=== PATIENT | female | born 1945 | race Hispanic/Latino ===

== ENCOUNTER 2018-11-18 09:12 | Day surgery (SDC) | payer OTHER ==
--- OUTSIDE RECORDS SUMMARY | 2018-11-18 09:16 | XMS REPORT ---
:1945 Author Organization eClinicalWorks Care Team Providers Name Role Phone Chaparro To Provider Role Unavailable Allergies No Known Allergies Problems Problem Type Condition Code Onset Dates Condition Status Problem Anemia D64.9 Active Problem Benign essential HTN I10 Active Problem Vitamin D deficiency E55.9 Active Problem Decreased vision of right eye H54.7 Active Problem History of fall Z91.81 Active Problem Adult BMI 32.0-32.9 kg/sq m Z68.32 Active Problem Diverticulosis of colon without K57.30 Active diverticulitis Problem Hyperlipidemia E78.5 Active Problem Tobacco use disorder F17.200 Active Problem External hemorrhoids K64.4 Active Problem CKD (chronic kidney disease) stage N18.4 Active 4, GFR 15-29 ml/min Problem Proteinuria, unspecified type R80.9 Active Problem Nephritic syndrome N05.9 Active Problem Diabetes type 2, controlled E11.9 Active Problem Pelvic fracture S32.9XXA Active Problem Constipation K59.00 Active Problem Vitamin B 12 deficiency E53.8 Active Problem Insomnia G47.00 Active Medications No Known Medications Results No Known Results Summary Purpose eClinicalWorks Submission
--- OUTSIDE RECORDS SUMMARY | 2018-11-18 09:16 | XMS REPORT ---
:1945 Author Organization [employer]Works Care Team Providers Name Role Phone MayfieldTo Provider Role Unavailable Allergies, Adverse Reactions, Alerts Substance Reaction Event Type N.K.D.A. Info Not Available Non Drug Allergy Problems Problem Type Condition Code Onset Dates Condition Status Assessment Adult BMI 32.0-32.9 kg/sq m Z68.32 Active Assessment Proteinuria, unspecified type R80.9 Active Assessment Insomnia G47.00 Active Problem Constipation K59.00 Active Assessment Anemia D64.9 Active Problem Insomnia G47.00 Active Assessment CKD (chronic kidney disease) stage N18.4 Active 4, GFR 15-29 ml/min Problem Anemia D64.9 Active Problem Benign essential HTN I10 Active Problem Vitamin D deficiency E55.9 Active Problem Decreased vision of right eye H54.7 Active Problem History of fall Z91.81 Active Assessment Diabetes type 2, controlled E11.9 Active Assessment Hyperlipidemia E78.5 Active Problem Adult BMI 32.0-32.9 kg/sq m Z68.32 Active Assessment History of fall Z91.81 Active Problem Diverticulosis of colon without K57.30 Active diverticulitis Problem Hyperlipidemia E78.5 Active Problem Tobacco use disorder F17.200 Active Problem External hemorrhoids K64.4 Active Problem CKD (chronic kidney disease) stage N18.4 Active 4, GFR 15-29 ml/min Problem Proteinuria, unspecified type R80.9 Active Assessment Benign essential HTN I10 Active Problem Nephritic syndrome N05.9 Active Problem Diabetes type 2, controlled E11.9 Active Problem Pelvic fracture S32.9XXA Active Problem Vitamin B 12 deficiency E53.8 Active Medications Medication Code Code Instructions Start End Status Dosage System Date Date Atorvastatin [facility] 20492220573 80 MG Orally Active 1 tablet Calcium Once a day Amitriptyline [facility] 06578975054 10 MG Active TAKE ONE HCl TABLET BY MOUTH EVERY DAY AT BEDTIME Carvedilol ND 60183614965 12.5 MG Active TAKE ONE TABLET BY MOUTH 2 TIMES DAILY Omeprazole [facility] 68130128947 20 MG Active TAKE ONE CAPSULE BY MOUTHDAILY Glimepiride [facility] 50853666915 4 MG Active TAKE ONE TABLET BY MOUTH ONCE DAILY Os-Kory Ultra [facility] 12745068825 600 MG Orally Active 1 tablet Twice a day with meals Carvedilol [facility] 43390099214 12.5 MG Orally Active 1 tab BID Amlodipine [facility] 10776657906 10 MG Active TAKE 1 Besylate TABLET BY MOUTH DAILY Tresiba [facility] 58720705180 200 UNIT/ML Active inject 35 FlexTouch Subcutaneous units Once a day Lipitor [facility] 32541768507 80 MG Orally Active 1 tablet Once a day Amitriptyline [facility] 27795749501 10 MG Orally Active 1 tablet HCl Once a day Aspir-81 [facility] 44875402543 81 MG Orally Active 1 tablet Once a day Vitamin D3 [facility] 28729956798 1000 UNIT Active 1 capsule Orally Once a day Ferrous Sulfate [facility] 89222300091 325 (65 Fe) MG Active 1 tablet Orally Once a day Amlodipine [facility] 39459506077 10 MG Orally Active take 1 Besylate Once a day tablet by mouth daily Glimepiride [facility] 58890718240 4 MG Orally Active 1 tablet Once a day with breakfast or the first main meal of the day Results No Known Results Summary Purpose eClinicalWorks Submission
--- OUTSIDE RECORDS SUMMARY | 2018-11-18 09:16 | XMS REPORT ---
:1945 Author Organization eClinicalWorks Care Team Providers Name Role Phone To Mayfield Provider Role Unavailable Allergies No Known Allergies Problems Problem Type Condition Code Onset Dates Condition Status Assessment Proteinuria, unspecified type R80.9 Active Assessment Insomnia G47.00 Active Problem Diabetes type 2, controlled E11.9 Active Assessment Anemia D64.9 Active Problem Constipation K59.00 Active Assessment CKD (chronic kidney disease) stage N18.4 Active 4, GFR 15-29 ml/min Problem Insomnia G47.00 Active Problem Vitamin D deficiency E55.9 Active Problem Anemia D64.9 Active Problem History of fall Z91.81 Active Problem Tobacco use disorder F17.200 Active Assessment Decreased vision of right eye H54.7 Active Assessment Hyperlipidemia E78.5 Active Problem Decreased vision of right eye H54.7 Active Assessment History of fall Z91.81 Active Problem Hyperlipidemia E78.5 Active Problem Benign essential HTN I10 Active Problem External hemorrhoids K64.4 Active Problem Diverticulosis of colon without K57.30 Active diverticulitis Problem CKD (chronic kidney disease) stage N18.4 Active 4, GFR 15-29 ml/min Assessment Diabetes type 2, controlled E11.9 Active Assessment Benign essential HTN I10 Active Problem Vitamin B 12 deficiency E53.8 Active Problem Nephritic syndrome N05.9 Active Problem Proteinuria, unspecified type R80.9 Active Problem Pelvic fracture S32.9XXA Active Medications Medication Code Code Instructions Start End Status Dosage System Date Date Carvedilol ND 43756209894 12.5 MG Orally Active not defined Glimepiride ND 03749298786 4 MG Orally Active 1 tablet Once a day with breakfast or the first main meal of the day Os-Kory Ultra ND 40612066722 600 MG Orally Active 1 tablet Twice a day with meals Amlodipine ND 86070594396 10 MG Active TAKE 1 Besylate TABLET BY MOUTH DAILY Carvedilol ND 10313008173 12.5 MG Active TAKE ONE TABLET BY MOUTH 2 TIMES DAILY Lipitor ND 13058423351 80 MG Orally Active 1 tablet Once a day Levemir [facility] 40808912015 100 UNIT/ML Active INJECT 56 FlexTouch UNITS SUB-Q EVERY DAY IN THE MORNING Vitamin D3 [facility] 55884570233 1000 UNIT Active 1 capsule Orally Once a day Atorvastatin [facility] 35935724408 80 MG Orally Active 1 tablet Calcium Once a day Aspir-81 [facility] 16316295653 81 MG Orally Active 1 tablet Once a day Ferrous Sulfate [facility] 73447014185 325 (65 Fe) MG Active 1 tablet Orally Once a day Glimepiride [facility] 78684804805 4 MG Active TAKE ONE TABLET BY MOUTH ONCE DAILY Amitriptyline [facility] 95761002323 10 MG Orally Active 1 tablet HCl Once a day Amlodipine [facility] 08658277735 10 MG Active TAKE 1 Besylate TABLET BY MOUTH DAILY Chantix Starting [facility] 03640105598 0.5 MG X 11 & Active not defined Month Lucien 1 MG X 42 Orally Omeprazole [facility] 87229571427 20 MG Active TAKE ONE CAPSULE BY MOUTHDAILY Tresiba [facility] 75410144431 200 UNIT/ML Nov 20, Active Inject 40 FlexTouch Subcutaneous 2018 units Once a day Levemir [facility] 30175866147 100 UNIT/ML Inactive not defined Subcutaneous Vistaril [facility] 46953819819 25 MG Orally Active 1 capsule as every 8 hrs needed Results No Known Results Summary Purpose eClinicalWorks Submission
--- OUTSIDE RECORDS SUMMARY | 2018-11-18 09:16 | XMS REPORT ---
:1945 Author Organization eClinicalWorks Care Team Providers Name Role Phone MayfieldTo Provider Role Unavailable Allergies, Adverse Reactions, Alerts Substance Reaction Event Type N.K.D.A. Info Not Available Non Drug Allergy Problems Problem Type Condition Code Onset Dates Condition Status Problem Vitamin D deficiency E55.9 Active Problem Hyperlipidemia E78.5 Active Problem Benign essential HTN I10 Active Problem Adult BMI 32.0-32.9 kg/sq m Z68.32 Active Assessment Upper respiratory tract infection, J06.9 Active unspecified type Problem Decreased vision of right eye H54.7 Active Assessment Allergic rhinitis, unspecified J30.9 Active seasonality, unspecified trigger Problem Allergic rhinitis, unspecified J30.9 Active seasonality, unspecified trigger Problem External hemorrhoids K64.4 Active Problem Diverticulosis of colon without K57.30 Active diverticulitis Problem History of fall Z91.81 Active Problem Tobacco use disorder F17.200 Active Problem Proteinuria, unspecified type R80.9 Active Problem Pelvic fracture S32.9XXA Active Problem CKD (chronic kidney disease) stage N18.4 Active 4, GFR 15-29 ml/min Problem Diabetes type 2, controlled E11.9 Active Problem Constipation K59.00 Active Problem Vitamin B 12 deficiency E53.8 Active Problem Insomnia G47.00 Active Problem Nephritic syndrome N05.9 Active Problem Anemia D64.9 Active Medications Medication Code Code Instructions Start End Status Dosage System Date Date Amlodipine [facility] [place] 34724540559 10 MG Active TAKE 1 Besylate TABLET BY MOUTH DAILY Atorvastatin ND 53404453063 80 MG Orally Active 1 tablet Calcium Once a day -81 [facility] [place] 2[place] 52719758356 81 MG Orally Active 1 tablet Once a day Omeprazole ND 02480879244 20 MG Orally Active take one Once a day capsule by mouthdaily Lipitor ND 17041298032 80 MG Orally Active 1 tablet Once a day Vitamin D3 ND 08625650433 1000 UNIT Active 1 capsule Orally Once a day Os-Kory Ultra ND 59263960517 600 MG Orally Active 1 tablet Twice a day with meals Ferrous Sulfate [facility] [place] 2[place] 11787542701 325 (65 Fe) MG Active 1 tablet Orally Once a day Tresiba [facility] [place] 2] 34715455414 200 UNIT/ML Active inject 35 FlexTouch Subcutaneous units Once a day Carvedilol [facility] [place] 2] 03378518922 12.5 MG Active TAKE ONE TABLET BY MOUTH 2 TIMES DAILY Carvedilol [facility] [place] 2[place] 05130710227 12.5 MG Orally Active 1 tab BID Benzonatate [facility] [place] 2] 18213538251 200 MG Orally Nov 11Nov Active 1 capsule Three times a 2018 Amlodipine [facility] [place] 2] 48942393690 10 MG Orally Active take 1 Besylate Once a day tablet by mouth daily Amitriptyline [facility] [place]NOTE 2] 12704478249 10 MG Orally Active 1 tablet HCl Once a day Results Name Result Date Reference Range Unit Abnormality Flag STREP A RAPID ----Result Negative [id number] FLU TEST A/B ----B Neg [id number] ----A Neg [id number] Summary Purpose eClinicalWorks Submission
--- OUTSIDE RECORDS SUMMARY | 2018-11-18 09:16 | XMS REPORT ---
:1945 Author Organization eClinicalWorks Care Team Providers Name Role Phone Chaparro To Provider Role Unavailable Allergies No Known Allergies Problems Problem Type Condition Code Onset Dates Condition Status Problem Vitamin D deficiency E55.9 Active Problem Hyperlipidemia E78.5 Active Problem Benign essential HTN I10 Active Problem Adult BMI 32.0-32.9 kg/sq m Z68.32 Active Problem Decreased vision of right eye H54.7 Active Problem Allergic rhinitis, unspecified J30.9 Active seasonality, [...] N05.9 Active Problem Anemia D64.9 Active Medications No Known Medications Results No Known Results Summary Purpose eClinicalWorks Submission
--- OUTSIDE RECORDS SUMMARY | 2018-11-18 09:16 | XMS REPORT ---
:1945 Author Organization eClinicalWorks Care Team Providers Name Role Phone Chaparro To Provider Role Unavailable Allergies, Adverse Reactions, Alerts Substance Reaction Event Type N.K.D.A. Info Not Available Non Drug Allergy Problems Problem Type Condition Code Onset Dates Condition Status Assessment External hemorrhoids K64.4 Active Assessment Adult BMI 32.0-32.9 kg/sq m Z68.32 [...] Start End Status Dosage System Date Date Os-Kory Ultra [facility] 35942343715 600 MG Orally Active 1 tablet Twice a day with meals Carvedilol ND 64050958498 12.5 MG Orally Active 1 tab BID Glimepiride ND 01095644034 4 MG Active TAKE ONE TABLET BY MOUTH ONCE DAILY Lipitor ND 89862968219 80 MG Orally Active 1 tablet Once a day Tresiba [facility] 35614946486 200 UNIT/ML Active inject 35 FlexTouch Subcutaneous units Once a day Ferrous Sulfate [facility] 74474330903 325 (65 Fe) MG Active 1 tablet Orally Once a day -81 [facility] 38031348780 81 MG Orally Active 1 tablet Once a day Amlodipine [facility] 99782387387 10 MG Orally Active take 1 Besylate Once a day tablet by mouth daily Atorvastatin [facility] 29776947680 80 MG Orally Active 1 tablet Calcium Once a day Vitamin D3 [facility] 28445185566 1000 UNIT Active 1 capsule Orally Once a day Amitriptyline [facility] 99603764607 10 MG Orally Active 1 tablet HCl Once a day Glimepiride [facility] 40274202264 4 MG Orally Inactive 1 tablet Once a day with breakfast or the first main meal of the day Amlodipine [facility] 46543479418 10 MG Active TAKE 1 Besylate TABLET BY MOUTH DAILY Carvedilol [facility] 45642920153 12.5 MG Active TAKE ONE TABLET BY MOUTH 2 TIMES DAILY Omeprazole [facility] 25782855833 20 MG Orally Active take one Once a day capsule by mouthdaily Results No Known Results Summary Purpose eClinicalWorks Submission
[2018-11-18] MEDS ORDERED: BUPIVACAINE 0.5% PF 10 ML VIAL ONE (09:31)
[2018-11-18] MEDS ORDERED: NA CHLORIDE 0.9% 1,000 ML ONE (09:51)
[2018-11-18] MEDS ORDERED: CEFOXITIN/SWI 1gm 1 GM/10 ML SYR ONE (09:51)
[2018-11-18] MEDS ORDERED: PROPOFOL 200 MG/20 ML VIAL IV ONE (09:52)
[2018-11-18] MEDS ORDERED: FENTANYL CITR 100 MCG/2 ML ONE (09:54)
[2018-11-18] MEDS ORDERED: LIDOCAINE 2% MPF 5 ML VIAL ONE (09:55)
[2018-11-18] MEDS ORDERED: ONDANSETRON 4 MG/2 ML VIAL ONE ×2 (09:56→12:16)
[2018-11-18] MEDS ORDERED: LIDOCAINE 1% MPF 2 ML AMPULE ONE (09:56)
--- NOTE | 2018-11-18 09:56 | RAD REPORT ---
EXAM DESCRIPTION: RAD - Chest Pa And Lat (2 Views) - 11/18/2018 9:45 am CLINICAL HISTORY: PREOP SAME DAY SURGERY BED 2 Chest pain. COMPARISON: CHEST SINGLE VIEW dated 09/19/2014; CHEST SINGLE VIEW dated 09/18/2014; CHEST SINGLE VIEW dated 10/23/2013 FINDINGS: Linear opacities are present in right lung base, likely representing subsegmental atelecta sis. The lungs are otherwise clear. The heart is mildly enlarged in size. Aortic atherosclerosis.
[2018-11-18 10:11] LABS: Absolute Lymphocytes (CBC) 1.4 K/uL (0.7-4.9); Basophils % 0.2 % (0-1.3); Hematocrit 28.5 % (36.0-45.0); MPV 8.9 fL (7.6-11.3); RBC Red Blood Cell Count 3.01 M/uL (3.86-4.86)
--- NOTE | 2018-11-18 10:43 | EKG ---
Test Date: 2018-11-18 Test Time: 09:44:28 [employer] Operator: DRAGAN MEASUREMENT RESULTS: Intervals: Rate: 76 IA: 156 QRSD: 76 QT: 378 QTc: 425 [place]: P: 48 IA: 156 QRS: 17 T: 67 INTERPRETIVE STATEMENTS: Normal sinus rhythm Normal ECG Compared to ECG 09/19/2014 06:47:05 No significant changes Electronically Signed On 11-18-18 10:42:40 CDT by Casper Sevilla
[2018-11-18] MEDS: HYDROMORPHONE HCL 1 MG/ML INJ ONE ×2 (11:28→11:35)
[2018-11-18] MEDS ORDERED: HYDROMORPHONE HCL 1 MG/ML INJ ONE (11:37)
[2018-11-18 12:42] VITALS: BP 138/63; TEMP 98.1
[2018-11-18 14:10] VITALS: O2SAT 93
--- NOTE | 2018-11-18 22:14 | OP ---
Date of Procedure: 11/18/2018 Surgeon: Uriel Muir MD Preoperative Diagnosis: Symptomatic hemorrhoids. Postoperative Diagnosis: Symptomatic hemorrhoids. Procedures: Exam under anesthesia, rigid proctoscopy, and complex hemorrhoidectomy x3. Estimated Blood Loss: Minimal. Specimen: Hemorrhoid and internal and external components with partial thrombosis in certain areas x 3. Finding: As above. Anesthesia: General. Complications: None. Disposition: Patient tolerated the procedure in stable condition, taken to Recovery in good general condition. Procedure In Detail: Patient was brought to the OR and placed in supine position. General anesthesi a was begun. Patient placed in the lithotomy position, prepped and draped in usual sterile fashion. Exam under anesthesia revealed multiple hemorrhoids in the anterior midline, left lateral, and right lateral. The right lateral had an external and internal components. Rigid proctoscopy confirmed th e aforementioned findings. No other evidence of disease was seen. Then, a Harmonic scalpel was util ized and all 3 of the hemorrhoids were excised in the standard fashion. Bleeding was controlled with cautery and all 3 were labeled separately and sent to pathology individually and then Marcaine 0.5% was infiltrated for postop pain control. Then, the anal pack consisting of Gel-Foam, Surgicel, and V aseline guaze placed in the anal canal. Sterile dressing was applied. Patient was awakened and take n to Recovery in good general condition. Discharge Note: Patient will go to Day Surgery, then home when stable. Condition: Stable. Discharge Instructions: Resume home medications and diet. Activity as tolerated. No heavy lifting. Remove outer dressing in a.m. Sitz baths q.i.d., high-fiber diet. Tylenol No. 3 one tablet p.o. q .4 p.r.n. pain. Procto-HC 2.5% to anus b.i.d. and p.r.n. Metamucil 1 tablespoon t.i.d. Colace 100 mg p.o. b.i.d. Follow up in my office in 2 weeks. Call for appointment. LORY/LIZANDRO Voice ID: [id number] Report ID: [id number]
== END 2018-11-18 13:53 | disposition home or self-care (01) ==
LOC: OR 09:12
PROVIDERS: ATTEND Surgery
PROC: 0DJD8ZZ Inspection of Lower Intestinal Tract, Via Natural or Artificial Opening Endoscopic (ICD-10-PCS; 2018-11-18)
PROC: 06BY0ZC Excision of Hemorrhoidal Plexus, Open Approach (ICD-10-PCS; principal; 2018-11-18 10:00)
DX: K64.5 Perianal venous thrombosis (principal); K64.8 Other hemorrhoids; E11.9 Type 2 diabetes mellitus without complications; I10 Essential (primary) hypertension; I25.10 Atherosclerotic heart disease of native coronary artery without angina pectoris; K21.9 Gastro-esophageal reflux disease without esophagitis
CPT/HCPCS: 93005; 85025; 80048; 36415; 82962 ×2; 88304; 71046; 46260; 45300; J2704; J3010; J2001; J1170 ×2; J7030; J2405 ×2